=== PATIENT | male | born 1990 | race Two or more races ===

== ENCOUNTER 2024-01-11 10:39 | Emergency (ER) | payer OTHER ==
[~2024-01-11] VITALS: Ht 180.3 cm; Wt 68.0 kg
[2024-01-11 11:17] VITALS: BP 136/75; O2SAT 100
[2024-01-11 14:48] LABS: HEMATOCRIT 45.4 % (39.0-48.0); HEMOGLOBIN 15.2 g/dL (13-16.00); MEAN CORPUSCULAR HEMOGLOBIN 29.5 pg (27.00-32.0); MEAN CORPUSCULAR HGB CONC 33.6 g/dl (32.0-36.0); PLATELET COUNT 235 K/uL (150-450); RED BLOOD COUNT 5.16 M/uL (4.00-6.00); RED CELL DISTRIBUTION WIDTH 14.1 % (11.5-14.5)
[2024-01-11] MEDS ORDERED: AMOX1TAB5 PO (16:56)
[2024-01-11] MEDS ORDERED: CEFTRIAXONE SODIUM 1,000 MG VIAL IM STA (17:00)
[2024-01-11] MEDS ORDERED: CEPHALEXIN500 MG PO (17:14)
== END 2024-01-11 17:17 | disposition home or self-care (01) ==
LOC: ER 10:41
DX: M70.10 Bursitis, unspecified hand (principal); R52 Pain, unspecified